=== PATIENT | male | born 1945 | race Caucasian/White ===

== ENCOUNTER 2016-08-11 07:57 | Day surgery (SDC) | payer OTHER, MEDICARE ==
[2016-08-07 14:50] VITALS: BMI 22.3
[2016-08-11] MEDS ORDERED: PROPOFOL 20 ML ONE ×2 (08:00)
[2016-08-11] MEDS ORDERED: LIDOCAINE HCL/PF 2% SDV 5ML VIAL ONE (08:01)
[2016-08-11 11:00] VITALS: TEMP 97.9
[2016-08-11 11:04] VITALS: BP 132/72; PULSE 63
--- NOTE | 2016-08-12 11:47 | PATH ---
Surgical Pathology Report Patient Name: JENA YEUNG [facility]. Rec. #: [id number] /Age/Gender: 1945 (Age: 71) / M Account: [id number] Location: [facility]-ENDOSCOPY Taken: 08/11/2016 Received: 08/11/2016 Reported: 08/12/2016 Physicians: Tiago Padilla M.D. Specimen(s) Received A: BX DUODENUM B: BX ANTRUM Clinical History GERD, family history of colon cancer Rule out celiac disease, gastritis Final Diagnosis A. DUODENUM, BIOPSY: DUODENAL MUCOSA WITH NO PATHOLOGIC CHANGES. NO HISTOLOGIC EVIDENCE OF GLUTEN SENSITIVE ENTEROPATHY (CELIAC SPRUE) IDENTIFIED. B. STOMACH, ANTRUM, BIOPSY: MILD CHRONIC GASTRITIS. IMMUNOSTAIN FOR H. PYLORI IS NEGATIVE. Electronically Signed Jose Juan Flowers M.D. Gross Description A. Received in formalin, labeled "duodenum" are 2 mckinley, irregular portions of soft tissue averaging 0.3 cm. in greatest dimension. The specimens are submitted in toto in one cassette. B. Received in formalin, labeled "antrum" are 2 mckinley, irregular portions of soft tissue averaging 0.2 cm. in greatest dimension. The specimens are submitted in toto in one cassette. 08/11/2016 saudi08/11/2016
== END 2016-08-11 10:10 | disposition home or self-care (01) ==
LOC: FASU-ENDO 07:57
PROVIDERS: ATTEND Internal Medicine Gastroenterology
PROC: 0DB68ZX Excision of Stomach, Via Natural or Artificial Opening Endoscopic, Diagnostic (ICD-10-PCS; 2016-08-11)
PROC: 0DJD8ZZ Inspection of Lower Intestinal Tract, Via Natural or Artificial Opening Endoscopic (ICD-10-PCS; principal; 2016-08-11 08:40)
PROC: 0DB98ZX Excision of Duodenum, Via Natural or Artificial Opening Endoscopic, Diagnostic (ICD-10-PCS; 2016-08-11 08:40)
DX: Z12.11 Encounter for screening for malignant neoplasm of colon (principal); Z80.0 Family history of malignant neoplasm of digestive organs; K57.30 Diverticulosis of large intestine without perforation or abscess without bleeding; R12 Heartburn; K31.89 Other diseases of stomach and duodenum; K44.9 Diaphragmatic hernia without obstruction or gangrene
CPT/HCPCS: 43239; G0105; 88305-TC; 88342-TC

== ENCOUNTER 2022-06-16 07:29 | Day surgery (SDC) | payer OTHER, MEDICARE ==
[2022-06-11 14:21] VITALS: BMI 22.8
[2022-06-16] MEDS ORDERED: LIDOCAINE HCL/PF 2% SDV 5ML VIAL ONE ×2 (07:57→07:58)
[2022-06-16] MEDS ORDERED: PROPOFOL 120 ML ONE (07:58)
[2022-06-16 09:17] VITALS: TEMP 97.6
[2022-06-16 10:10] VITALS: BP 123/80; PULSE 60; RESP 19
== END 2022-06-16 10:11 | disposition home or self-care (01) ==
LOC: FASU-ENDO 07:29
PROVIDERS: ATTEND Internal Medicine Gastroenterology
PROC: 0DJD8ZZ Inspection of Lower Intestinal Tract, Via Natural or Artificial Opening Endoscopic (ICD-10-PCS; principal; 2022-06-16 08:38)
DX: Z12.11 Encounter for screening for malignant neoplasm of colon (principal); Z80.0 Family history of malignant neoplasm of digestive organs; K57.30 Diverticulosis of large intestine without perforation or abscess without bleeding